=== PATIENT | female | born 1940 | race Caucasian/White ===

== ENCOUNTER → 2017-06-01 | Outpatient (CLI) | payer MEDICARE, OTHER ==
[2013-03-27 09:00] VITALS: BP 152/72
[~2017-06-01] MED LIST: CALCIUM + D 6001 TA1 PO; CLINORIL200 MG PO; COLACE 100100 MG/CAP PO; DUO-KAPS1 CAP PO; EPA1000 MG PO; IMDUR60 MG PO; LORATADINE10 MG PO; MEDI-FIRST ASP325 MG PO; METAMUCIL1 PDR PO; METFORMIN HCL500 M1 PO; NEURONTIN300 MG PO; NEVANAC 3 ML3 ML OP; NITROSTAT0.4 MG SL; NORCO 325 MG-51 TAB PO; PLAVIX 75MG TAB75 MG PO; RAMIPRIL10 MG PO
== END ==
LOC: LAB 07:33
DX: E11.8 Type 2 diabetes mellitus with unspecified complications (principal); Z12.11 Encounter for screening for malignant neoplasm of colon; I10 Essential (primary) hypertension; I25.10 Atherosclerotic heart disease of native coronary artery without angina pectoris

== ENCOUNTER → 2017-06-22 | Outpatient (CLI) | payer MEDICARE, OTHER ==
[2013-03-27 09:00] VITALS: BP 152/72
== END ==
LOC: RAD 11:41
DX: M11.261 Other chondrocalcinosis, right knee (principal)

== ENCOUNTER → 2018-02-01 | Outpatient (CLI) | payer MEDICARE, OTHER ==
[2013-03-27 09:00] VITALS: BP 152/72
[2018-02-01 07:59] LABS: BUN/CREATININE RATIO 27.2 (6.0-26.0); CALCIUM 9.4 mg/dL (8.4-10.2); POTASSIUM 4.1 mmol/L (3.6-5.0)
== END ==
LOC: LAB 07:29
PROVIDERS: Nurse Practitioner Family
DX: E11.9 Type 2 diabetes mellitus without complications (principal); I10 Essential (primary) hypertension; Z88.1 Allergy status to other antibiotic agents